=== PATIENT | male | born 1950 | race Caucasian/White ===

== ENCOUNTER → 2017-05-14 | Day surgery (SDC) | payer OTHER ==
[~2017-05-14] MED LIST: AMLO10TA4 PO; AMLO2.5T PO; ASPI325T8 PO; ATOR10TA PO; ATOR20TA58 PO; CEPH500T PO; Hydrocodone/Acetaminophen PO; IV RINGERS,LACTATED 1000ML 1,000 ML IV SCH; LIDOCAINE 1% PF 2 ML VIAL. ID PRN; MIDAZOLAM HCL/PF 2 MG/2 ML VIAL. IV PRN; PROPOFOL 40 ML IV ONE; VALS1TAB8 PO; ZOLP5TAB PO; fentaNYL PF VIAL 100 MCG/2 ML VIAL IV PRN
--- NOTE | 2017-05-14 08:38 | PDOC1 ---
HISTORY & PHYSICAL H&P Andrés Villagomez [id number] 1950 04/23/2017 03:00 PM 06/17 [facility], [facility] [address] [place] [address]. [phone] Patient: Andrés Villagomez Date of : 1950 Date: 04/23/2017 3:00 PM Visit Type: Consult This 67 year old male presents for Screening colonoscopy. History of Present Illness: 1. Screening colonoscopy No prior screening. Denies risk factors. Pertinent negatives include abdominal pain, change in bowel habits, change in stool caliber, constipation, decreased appetite, diarrhea, melena, nausea, rectal bleeding, vomiting, weight gain and weight loss. Additional information: No family history of colon cancer , No family history of Crohn's/colitis, No NSAID/ASA use and Never had colonoscopy. INTAKE COMMENTS: Intake Comments: Nurse Note: the pt is here today to schedule a colonoscopy. PROBLEM LIST: Problem Description Onset Date Chronic Notes Hypertension 04/23/2017 Y PAST MEDICAL/SURGICAL HISTORY (Detailed) Disease/disorder Onset Date Management Date Comments Hypertension Medications (Active): Started Medication Directions Instruction Stopped Aspir-81 81 mg tablet,delayed release take 1 tablet by oral route every day atorvastatin 10 mg tablet take 1 tablet by oral route every day valsartan 160 mg-hydrochlorothiazide 12.5 mg tablet take 1 tablet by oral route every day Allergies: Ingredient Reaction Medication Name Comment NO KNOWN ALLERGIES REVIEW OF SYSTEMS System Neg/Pos Details Constitutional Negative Chills, fever, malaise, weight gain and weight loss. ENMT Negative Sore throat. Eyes Negative Double vision. Respiratory Negative Dyspnea and wheezing. Cardio Negative Chest pain and irregular heartbeat/palpitations. GI Positive See HPI. GI Negative Abdominal pain, change in bowel habits, change in stool caliber, constipation, decreased appetite, diarrhea, melena, nausea, see HPI, rectal bleeding and vomiting. Negative Dysuria and hematuria. Endocrine Negative Cold intolerance and heat intolerance. Psych Negative Anxiety. Integumentary Negative Hives and rash. MS Negative Joint pain. Ajcob/Lymph Negative Easy bleeding and easy bruising. Allergic/Immuno Negative Food allergies. PHYSICAL EXAM: Exam Findings Details Constitutional Normal Well developed. Eyes Normal Conjunctiva - Right: Normal, Left: Normal. Sclera - Right: Normal, Left: Normal. Nasopharynx Normal Lips/teeth/gums - Normal. Neck Exam Normal Inspection - Normal. Thyroid gland - Normal. Respiratory Normal Inspection - Normal. Auscultation - Normal. Cardiovascular Normal Regular rate and rhythm. No murmurs, gallops, or rubs. Vascular Normal Pulses - Carotids: Normal, Femoral: Normal, Dorsalis pedis: Normal. Abdomen Normal Inspection - Normal. Anterior palpation - No guarding. No abdominal tenderness. No hepatic enlargement. No splenic enlargement. No hernia. No ascites. Skin Normal Inspection - Normal. Extremity Normal No edema. Psychiatric * Oriented to time, place, person and situation. Psychiatric Normal Appropriate mood and effect. Assessment/Plan # Detail Type Description 1. Assessment Encounter for screening colonoscopy (Z12.11). Patient Plan schedule colonoscopy. Plan Orders Further diagnostic evaluations ordered today include(s) Colonoscopy to be performed today. He is to schedule a follow-up visit with Jimmy Crawford MD upon completion of work-up Electronically signed by: Jimmy Crawford MD 04/23/2017 03:22 PM Document generated by: Jimmy Crawford 04/23/2017 03:22 PM Mary Beth León MD, Family Practice; Andrés Rico MD Internal Medicine; Michelle Kenyon MD, Internal Medicine; Rashmi Crawford MD Internal Medicine; Jimmy Crawford MD, Gastroenterology; Pepe Ortiz MD, Rheumatology, S. Viraj Verma, Physical Medicine/Rehab Amanda Bailon APRN ------ 05/14/17 Patient seen and examined. No change in H&P. JIMMY CRAWFORD MD May 14, 2017 08:38
[2017-05-14 10:17] VITALS: BP 147/80
== END | disposition home or self-care (01) ==
LOC: SURG 08:30
PROVIDERS: ATTEND Internal Medicine Gastroenterology
DX: Z12.11 Encounter for screening for malignant neoplasm of colon (principal); I10 Essential (primary) hypertension; E78.00 Pure hypercholesterolemia, unspecified; K21.9 Gastro-esophageal reflux disease without esophagitis; Z86.718 Personal history of other venous thrombosis and embolism; Z79.82 Long term (current) use of aspirin; Z87.39 Personal history of other diseases of the musculoskeletal system and connective tissue; Z86.73 Personal history of transient ischemic attack (TIA), and cerebral infarction without residual deficits
CPT/HCPCS: 45378; J2704